=== PATIENT | female | born 1965 | race Caucasian/White ===

== ENCOUNTER 2020-11-06 18:08 | Inpatient (IN) | payer MEDICARE, MEDICAID ==
[~2020-11-06] VITALS: Ht 167.6 cm; Wt 130.7 kg
[~2020-11-06 18:08] MED LIST: ATORVASTATIN CA20 MG PO; CEFUROXIME AXE250 MG PO; HYGROTON 2525 MG/TAB PO; KEPPRA250 MG PO
[2020-11-06] MEDS ORDERED: LEVETIRACETAM500 M2 PO (19:17)
[2020-11-06 19:20] VITALS: BP 150/79
--- NOTE | 2020-11-06 20:00 | NUR ---
Report received from Daysi NAJERA.
--- NOTE | 2020-11-06 20:10 | NUR ---
Attempted x 2 to start IV without success, once to RAC and right hand. Anne RN into start IV using ultrasound and started 1st attempt with 20 gauge IV catheter to right wrist and IV ativan 1 mg given followed by antibiotics.
--- NOTE | 2020-11-06 22:30 | NUR ---
Patients bed alarm alarming and patient standing at bedside stretching IV tubing out tight. Assisted to the bathroom and voids clear concentrated dk dary urine. Rests back in bed. IV site to right wrist swollen, cool to touch and IV zithromax stopped. Patient rests back in bed. Anne NAJERA into restart IV using ultrasound. Patients veins are very deep.
[2020-11-06 22:57] VITALS: BP 117/88
--- NOTE | 2020-11-07 00:23 | NUR ---
Patient rests in bed with eyes closed.
[2020-11-07 02:17] VITALS: BP 108/63
--- NOTE | 2020-11-07 03:20 | NUR ---
Patient turned certified professional controller light and stated "need to go to the bathroom" "I'm hooked to an IV". Explained she's not at this time, only during ABT. Patient up to the bathroom and back to bed. Asks "how do you turn the TV on?" and nurse showed patient. Denies pain or needs.
--- NOTE | 2020-11-07 05:26 | NUR ---
Patient asks "do I get to go home today". Explained that her chest xray showed she has pnuemonia and Dr. Henderson will want her to have additional days of IV antibiotics. Denies pain or shortness of breath. "I feel pretty good". Sits up in recliner watching TV.
--- NOTE | 2020-11-07 05:44 | NUR ---
PATIENT RESTS BACK IN BED. ASKS NURSE IF WE TALK TO HER SISTER BERE MCCORMACK TODAY "CAN YOU TELL HER TO BRING MY CELL PHONE UP". SHE'S THE ONE THAT BROUGHT ME UP HERE YESTERDAY".
[2020-11-07 05:46] VITALS: BP 143/89
--- NOTE | 2020-11-07 08:16 | NUR ---
PT SITTING UP IN BED, SMILING AFFECT, TALKATIVE, FULLY ALERT AND ORIENTED, STATES "I'M FEELING MUCH BETTER, DO YOU THINK I'LL BE ABLE TO GO HOME TODAY?!" PT EDUCATED ON CURRENT HEALTH CONDITION, PT ABLE TO TAKE ALL PO MEDS, IV ABX ADMINISTERED VIA LEFT WRIST INT, INDEPENDENT IN BED, ABLE TO SIT HERSELF UP ON THE SIDE TO EAT BREAKFAST AND AMBULATE AROUND ROOM WITH SLOW STEADY GAIT, DENIES NEEDS, DENIES PAIN, DENIES SOB, COMPLEX ASSESSMENT COMPLETED, CALL LIGHT WITHIN REACH UPON EXITING
--- NOTE | 2020-11-07 09:23 | NUR ---
PT RESTING IN BED, REQUESTING TO "SEE THE DOCTOR SO HOPEFULLY I CAN GO HOME TODAY", PT PROVIDED ROOM PHONE AND TALKING TO MULTIPLE FAMILY MEMBERS ON THE PHONE, INT FLUSHED AND IV ABX COMPLETED, PT STILL FULLY ALERT AND ORIENTED AND DENIES NEEDS
[2020-11-07 10:06] VITALS: BP 126/83
[2020-11-07 14:01] VITALS: BP 101/62
[2020-11-07] MEDS ORDERED: ZITHROMAX500 M2 PO (14:09)
--- NOTE | 2020-11-07 14:37 | NUR ---
AT BEDSIDE, DISCUSSING DC INSTRUCTIONS WITH PT, THIS NURSE REVIEWS ALL DC PAPERWORK AND FUTURE APPOINTMENTS WITH PT, PT HAS AN ECHO SCHEDULED FOR TUE 11/09 @ [address] [facility], PT NOTIFIED AND DENIES FURTHER QUESTIONS, ALL BELONGINGS ACCOUNTED FOR
--- NOTE | 2020-11-07 15:18 | NUR ---
PT DISCHARGED IN STABLE CONDITION AT THIS TIME, SISTER PROVIDING TRANSPORTATION VIA POV
[2020-11-07 15:37] VITALS: BP 126/69
== END 2020-11-07 15:18 | disposition home or self-care (01) | DRG 194 ==
LOC: MED/SURG 18:08
PROVIDERS: ADMIT Family Medicine
DX: J18.9 Pneumonia, unspecified organism (principal); N39.0 Urinary tract infection, site not specified; I10 Essential (primary) hypertension; G40.909 Epilepsy, unspecified, not intractable, without status epilepticus; R62.50 Unspecified lack of expected normal physiological development in childhood; R41.0 Disorientation, unspecified; Z20.828 Contact with and (suspected) exposure to other viral communicable diseases
CPT/HCPCS: J0456; J0696; J1650; J2060; J7050

== ENCOUNTER → 2020-11-15 | Outpatient (CLI) | payer MEDICARE, MEDICAID ==
[2020-11-07 15:37] VITALS: BP 126/69
[~2020-11-15] MED LIST changes: +LEVETIRACETAM500 M2 PO; +ZITHROMAX500 M2 PO
== END ==
LOC: RAD 15:45 → VAS 15:45
DX: I51.7 Cardiomegaly (principal)